=== PATIENT | male | born 1960 | race Caucasian/White ===

== ENCOUNTER 2021-08-12 09:52 | Emergency (ER) | payer OTHER ==
--- NOTE | 2021-08-12 10:35 | ED ---
ENT HPI - General Chief complaint: ENT Stated complaint: boil in nose Time Seen by Provider: 08/12/21 10:07 Source: patient, RN notes reviewed Mode of arrival: ambulatory Limitations: no limitations - History of Present Illness Initial comments: 89-year-old male presents to emergency department with left nostril obstruction possible boil or polyp. He notes he was on the Internet last night significant removed himself. He notes that he's had this issue ongoing for the past several years. He notes he has not followed up with an ENT specialist. Patient was otherwise well-appearing. He denied any fevers chest pain shortness of breath headache nausea vomiting diarrhea constipation fatigue chills. - Related Data Previous Rx's Medication Instructions Recorded Fluticasone Nasal [place] [Flonase 2 spr EA NOSTRIL DAILY #16 gm 08/12/21 Nasal [place]] Allergies Allergy/AdvReac Type Severity Reaction Status Date / Time No Known Allergies Allergy Verified 08/12/21 09:57 Review of Systems ROS Statement: Those systems with pertinent positive or pertinent negative responses have been documented in the HPI. ROS Other: All systems not noted in ROS Statement are negative. Past Medical History Past Medical History: No Reported History History of Any Multi-Drug Resistant Organisms: None Reported Past Surgical History: No Surgical Hx Reported Past Psychological History: No Psychological Hx Reported Smoking Status: Current every day smoker Past Alcohol Use History: None Reported Past Drug Use History: Cocaine, Marijuana General Exam Limitations: no limitations General appearance: alert, in no apparent distress Head exam: Present: atraumatic, normocephalic, normal inspection Eye exam: Present: normal appearance, PERRL, EOMI. Absent: scleral icterus, conjunctival injection, periorbital swelling ENT exam: Present: normal exam, mucous membranes moist, other (Several left- sided nasal polyps causing mild obstruction to the nare.) Neck exam: Present: normal inspection Respiratory exam: Present: normal lung sounds bilaterally. Absent: respiratory distress, wheezes, rales, rhonchi, stridor Cardiovascular Exam: Present: regular rate, normal rhythm, normal heart sounds. Absent: systolic murmur, diastolic murmur, rubs, gallop, clicks GI/Abdominal exam: Present: soft, normal bowel sounds. Absent: distended, tenderness, guarding, rebound, rigid Extremities exam: Present: normal inspection, full ROM, normal capillary refill. Absent: tenderness, pedal edema, joint swelling, calf tenderness Neurological exam: Present: alert, oriented X3 Psychiatric exam: Present: normal affect, normal mood Skin exam: Present: warm, dry, intact, normal color. Absent: rash Course Vital Signs 08/12/21 09:53 Temperature 97.9 F Pulse Rate 97 Respiratory 18 Rate Blood Pressure 169/88 O2 Sat by Pulse 98 Oximetry Medical Decision Making - Medical Decision Making 60-year-old male complaining of left-sided nose obstruction due to possible amber yp or boil. Upon physical inspection left nostril does have several large polyps. Patient was informed that he will need to follow-up with a ENT specialist to have them removed. Patient is agreeable with discharge home with Flonase. Case discussed with Dr. Breaux, patient can discharge home. Disposition Clinical Impression: Nasal polyp Disposition: HOME SELF-CARE Condition: Stable Instructions (If sedation given, give patient instructions): Nasal Polyps (ED) Additional Instructions: Please return to the Emergency Department if symptoms worsen or any other concerns. Follow-up with primary care in 1-2 days. Follow-up with ENT specialist as soon as possible. Use Flonase as prescribed. Prescriptions: Fluticasone Nasal [place] [Flonase Nasal [place]] 2 spr EA NOSTRIL DAILY #16 gm Is patient prescribed a controlled substance at d/c from ED?: No Referrals: Mando King MD [Primary Care Provider] - 1-2 days Mark Silverio MD [STAFF PHYSICIAN] - 1-2 days Time of Disposition: 10:35
[2021-08-12 11:05] VITALS: BP 157/79; PULSE 67; RESP 17; TEMP 98
== END 2021-08-12 11:07 | disposition home or self-care (01) ==
LOC: EC 09:52
DX: J33.9 Nasal polyp, unspecified (principal); F17.200 Nicotine dependence, unspecified, uncomplicated; F12.90 Cannabis use, unspecified, uncomplicated
CPT/HCPCS: 99282

== ENCOUNTER → 2021-10-11 | Outpatient (CLI) | payer OTHER ==
--- NOTE | 2021-10-12 11:37 | CT ---
EXAMINATION TYPE: CT sinus wo con DATE OF EXAM: 10/11/2021 COMPARISON: None HISTORY: Chronic sinusitis, polyps LT side CT DLP: 605.90 mGycm. Automated Exposure Control for Dose Reduction was Utilized. TECHNIQUE: CT scan of the sinuses is performed without contrast, axial images are obtained, coronal r eformatted images are also reviewed. FINDINGS: The left maxillary sinus shows abnormal soft tissue, there is bone remodeling along the med ial aspect of the left maxillary sinus, mixed predominant soft tissue and airspace disease is present , there are some areas of polypoid soft tissue present along the middle turbinate, soft tissue extend s along the middle and inferior turbinates. There is a deviated nasal septum present. Ostiomeatal uni t is not recognizable on the left but patent on the right. There is a posterior molar present at the antrum of the left maxillary sinus, there is likely to indicate present within the more anterior mola r, possible periapical abscess formation present along the roots of the molar. Visualized portion of mastoid air cells show no abnormal opacification. The globes are intact bilate rally. IMPRESSION: Indeterminate soft tissue with bone remodeling could possibly be related to infection, un derlying polyp disease, mucous retention cyst not excluded, additional findings above
== END | disposition home or self-care (01) ==
LOC: RADCTMAIN 15:13
PROVIDERS: ATTEND Otolaryngology
DX: J34.89 Other specified disorders of nose and nasal sinuses (principal); J34.2 Deviated nasal septum
CPT/HCPCS: 70486

== ENCOUNTER → 2023-10-30 | Outpatient (CLI) | payer OTHER ==
--- NOTE | 2023-10-30 09:13 | CTL ---
EXAMINATION TYPE: CT Low Dose Lung DATE OF EXAM ORDERED: 10/30/2023 COMPARISON: None HISTORY: . Low Dose CT Lung Screening CT DLP: [address] CTDI: 2.45 mGy IV CONTRAST USED: None. SCREENING VISIT: First visit COMPARISON: None. TECHNIQUE: Low dose computed tomography scan was performed through the chest at 1 millimeter thick se ctions and reconstructed images in the coronal plane at [address] DIAGNOSTIC QUALITY: Satisfactory FINDINGS: LUNG NODULES: Not presentLeft lung: no nodules identified.Right lung: no nodules identified. LUNGS: COPD: Severity: Mild Fibrosis: Severity:None Lymph nodes: None Other findings: None RIGHT PLEURAL SPACE: Effusion: None Calcification: None Thickening: None Pneumothorax: None LEFT PLEURAL SPACE: Effusion: None Calcification: None Thickening: None Pneumothorax: None HEART: Heart Size: Mildly enlarged Coronary calcification: Mild Pericardial effusion: None OTHER FINDINGS: Upper abdomen: No significant abnormality Bony thorax: Degenerative changes Supraclavicular region: No significant abnormalityOther: No significant abnormalityI IMPRESSION: Benign FOLLOW UP CT CHEST RECOMMENDATION: Follow-up screening in one year CT LUNG RAD: LUNG RAD CATEGORY 1 negative
== END | disposition home or self-care (01) ==
LOC: RADCTMAIN 08:48
PROVIDERS: ATTEND Family Medicine
DX: Z12.2 Encounter for screening for malignant neoplasm of respiratory organs (principal); Z87.891 Personal history of nicotine dependence
CPT/HCPCS: 71271

== ENCOUNTER → 2023-11-05 | Outpatient (CLI) | payer OTHER ==
--- NOTE | 2023-11-05 13:44 | US ---
EXAMINATION TYPE: US Aorta Screening DATE OF EXAM: 11/05/2023 COMPARISON: NONE CLINICAL INDICATION: Male, 62 years old with history of I71.9 AORTIC ANEURYSM OF UNSPECIFIED SITE; sc reening TECHNIQUE: Multiple sonographic images of the abdominal aorta are obtained. FINDINGS: EXAM MEASUREMENTS: Abdominal Aorta: Proximal: 2.0 x 2.0cm Mid: 2.2 x 2.2cm Distal: 2.0 x 2.3cm Bifurcation: Right Iliac: 1.2 x 1.3cm Left Iliac: 1.3 x 1.2cm YARD ENGINEER NOTES: Calcifications noted. No evidence of AAA at this time as visualized IMPRESSION: No sonographic evidence for AAA.
== END | disposition home or self-care (01) ==
LOC: RADUSWWP 08:41
PROVIDERS: ATTEND Family Medicine
DX: Z13.6 Encounter for screening for cardiovascular disorders (principal); I71.9 Aortic aneurysm of unspecified site, without rupture
CPT/HCPCS: 76706

== ENCOUNTER 2023-12-15 13:24 | Emergency (ER) | payer OTHER ==
[2023-12-15 14:05] VITALS: TEMP 97.7
--- NOTE | 2023-12-15 15:01 | CT ---
EXAMINATION TYPE: CT brain wo con CT DLP: 1226.4 mGycm, Automated exposure control for dose reduction was used. DATE OF EXAM: 12/15/2023 2:50 PM COMPARISON: None. CLINICAL INDICATION:Male, 63 years old with history of weakness, States that his head has been shakin g, numbness in fingers x 2 weeks TECHNIQUE: Brain: Axial CT images of the brain were obtained with coronal and sagittal reformats created and rev iewed. Contrast used: None. Oral contrast used: None. FINDINGS: Brain: Extra-axial spaces: No abnormal extra-axial fluid collections. Ventricular system: Within normal limits Cerebral parenchyma: No acute intraparenchymal hemorrhage or mass effect. The lin-white junction is well differentiated. Scattered hypoattenuating areas are seen within the white matter. Cerebellum: Unremarkable. Mass effect: No evidence of midline shift. Intracranial vasculature: Atherosclerotic calcifications of the intracranial vessels. Soft tissues: Normal. Calvarium/osseous structures: No depressed skull fracture. Paranasal sinuses and mastoid air cells: Prior post fess changes involving the left maxillary sinus w ith mild residual disease. Visualized orbits: Orbital contents are intact. IMPRESSION: 1. No acute intracranial process. 2. Nonspecific white matter changes, likely secondary to chronic small vessel ischemic disease.
--- NOTE | 2023-12-15 15:03 | XR ---
EXAMINATION TYPE: XR chest 2V DATE OF EXAM: 12/15/2023 2:57 PM CLINICAL INDICATION:Male, 63 years old with history of Weakness; [facility] COMPARISON: None TECHNIQUE: XR chest 2V Frontal and lateral views of the chest. FINDINGS: Lungs/Pleura: Lungs are mildly hyperexpanded. No evidence of pleural effusion or pneumothorax Pulmonary vascularity: Unremarkable. Heart/mediastinum: Cardiomediastinal silhouette is unremarkable. Musculoskeletal: No acute osseous pathology. IMPRESSION: 1. No evidence of acute process. 2. Mild hyperexpansion of the lungs which can be seen with underlying emphysema.
--- NOTE | 2023-12-15 15:04 | ED ---
General Adult HPI - General Chief complaint: Neuro Symptoms/Deficit Stated complaint: numb finger Time Seen by Provider: 12/15/23 13:50 Source: patient, RN notes reviewed, old records reviewed Mode of arrival: ambulatory Limitations: no limitations - History of Present Illness Initial comments: 63-year-old male history of anxiety presents for evaluation of head tremor and bilateral hand and foot numbness. Symptoms have been progressive over the past several days but his sister does note that they may have been present longer up to a month or so. He is currently on Ativan and Paxil. No fever no central chest pain. No focal weakness. No headache. - Related Data Previous Rx's Medication Instructions Recorded Fluticasone Nasal [place] [Flonase 2 spr EA NOSTRIL DAILY #16 gm 08/12/21 Nasal [place]] Allergies Allergy/AdvReac Type Severity Reaction Status Date / Time No Known Allergies Allergy Verified 08/12/21 09:57 Review of Systems ROS Statement: Those systems with pertinent positive or pertinent negative responses have been documented in the HPI. ROS Other: All systems not noted in ROS Statement are negative. Past Medical History Past Medical History: No Reported History, Hypertension History of Any Multi-Drug Resistant Organisms: None Reported Past Surgical History: No Surgical Hx Reported Past Psychological History: Anxiety, Depression Smoking Status: Current every day smoker Past Alcohol Use History: None Reported Past Drug Use History: Cocaine, Marijuana General Exam Limitations: no limitations General appearance: alert, in no apparent distress Head exam: Present: atraumatic, normocephalic Eye exam: Present: normal appearance, PERRL ENT exam: Present: mucous membranes dry Neck exam: Present: normal inspection. Absent: tenderness, meningismus Respiratory exam: Present: normal lung sounds bilaterally. Absent: respiratory distress Cardiovascular Exam: Present: regular rate, normal rhythm GI/Abdominal exam: Present: soft. Absent: distended, tenderness Neurological exam: Present: alert Psychiatric exam: Present: anxious Skin exam: Present: warm, dry, intact Course Vital Signs 12/15/23 13:30 Temperature 97.7 F Pulse Rate 77 Respiratory 20 Rate Blood Pressure 153/92 O2 Sat by Pulse 98 Oximetry Medical Decision Making - Medical Decision Making Was pt. sent in by a medical professional or institution (, PA, SHIPPING TRACK SUPERVISOR, urgent care, hospital, or fpc...) When possible be specific @ -No Did you speak to anyone other than the patient for history (EMS, parent, family, police, friend...)? What history was obtained from this source @ -No Did you review nursing and triage notes (agree or disagree)? Why? @ -I reviewed and agree with nursing and triage notes Were old charts reviewed (outside hosp., previous admission, EMS record, old EKG, old radiological studies, urgent care reports/EKG's, fpc records)? Report findings @ -No old charts were reviewed Differential Diagnosis (chest pain, altered mental status, abdominal pain women, abdominal pain men, vaginal bleeding, weakness, fever, dyspnea, syncope, headache, dizziness, GI bleed, back pain, seizure, CVA, palpatations, mental health, musculoskeletal)? @ -Differential Weakness: Hypoglycemia, shock, sepsis, hyponatremia, anemia, infection, LA, ETOH, adverse medicine reaction, overdose, stroke, this is not meant to be an all-inclusive list. EKG interpreted by me (3pts min.). @ -As above X-rays interpreted by me (1pt min.). @Chest x-ray negative for acute cardiopulmonary findings CT interpreted by me (1pt min.). @ -CT brain negative for intracranial hemorrhage or mass effect, no acute findings. U/S interpreted by me (1pt. min.). @ -None done What testing was considered but not performed or refused? (CT, X-rays, U/S, labs)? Why? @ -None What meds were considered but not given or refused? Why? @ -None Did you discuss the management of the patient with other professionals (professionals i.e. , PA, SHIPPING TRACK SUPERVISOR, lab, RT, psych nurse, pediatric social worker, environmental professional, teacher, compliance officer, pillowcase cutter)? Give summary @ -No Was smoking cessation discussed for >3mins.? @ -No Was critical care preformed (if so, how long)? @ -No Were there social determinants of health that impacted care today? How? (Homelessness, low income, unemployed, alcoholism, drug addiction, transportation, low edu. Level, literacy, decrease access to med. care, residential, rehab)? @ -No Was there de-escalation of care discussed even if they declined (Discuss DNR or withdrawal of care, Hospice)? DNR status @ -No What co-morbidities impacted this encounter? (DM, HTN, Smoking, COPD, CAD, Cancer, CVA, ARF, Chemo, Hep., AIDS, mental health diagnosis, sleep apnea, morbid obesity)? @ -Anxiety Was patient admitted / discharged? Hospital course, mention meds given and route, prescriptions, significant lab abnormalities, going to OR and other pertinent info. @63-year-old male presenting with tremor, bilateral hand and foot numbness and tingling. Patient is well-appearing stable vitals, no focal neurological findings. I did perform workup including laboratory testing, CT, chest x-ray. Labs are unremarkable. Head CT and chest x-ray are negative for acute findings. The patient does have good primary care follow-up and will follow closely with his primary care provider. He will continue Paxil and Ativan as prescribed. Return parameters discussed. Undiagnosed new problem with uncertain prognosis? @ -No Drug Therapy requiring intensive monitoring for toxicity (Heparin, Nitro, Insulin, Cardizem)? @ -No Were any procedures done? @ -No Diagnosis/symptom? @ -[Tremor Acute, or Chronic, or Acute on Chronic? @ -Acute Uncomplicated (without systemic symptoms) or Complicated (systemic symptoms)? @ -[default Side effects of treatment? @ -No Exacerbation, Progression, or Severe Exacerbation? @ -No Poses a threat to life or bodily function? How? (Chest pain, USA, LA, pneumonia, PE, COPD, DKA, ARF, appy, cholecystitis, CVA, Diverticulitis, Homicidal, Suicidal, threat to staff... and all critical care pts) @ -[Low risk at this time - Lab Data Result diagrams: 12/15/23 14:39 12/15/23 14:39 Lab Results 12/15/23 12/15/23 12/15/23 Range/Units 14:39 14:39 14:39 WBC 10.3 (3.8-10.6) k/uL RBC 5.14 (4.30-5.90) m/uL Hgb 16.7 (13.0-17.5) gm/dL Hct 51.2 (39.0-53.0) % MCV 99.6 (80.0-100.0) fL MCH 32.5 (25.0-35.0) pg MCHC 32.7 (31.0-37.0) g/dL RDW 11.5 (11.5-15.5) % Plt Count 145 L (150-450) k/uL MPV 10.4 PT 11.0 (10.0-12.5) sec INR 1.0 (<1.2) APTT 23.8 (22.0-30.0) sec Sodium 140 (137-145) mmol/L Potassium 4.1 (3.5-5.1) mmol/L Chloride 107 (98-107) mmol/L Carbon Dioxide 23 (22-30) mmol/L Anion Gap 10 mmol/L BUN 13 (9-20) mg/dL Creatinine 0.91 (0.66-1.25) mg/dL Est GFR (CKD-EPI)AfAm >90 (>60 ml/min/1.73 sqM) Est GFR (CKD-EPI)NonAf >90 (>60 ml/min/1.73 sqM) Glucose 98 (74-99) mg/dL Plasma Lactic Acid Tera (0.7-2.0) mmol/L Calcium 9.4 (8.4-10.2) mg/dL Magnesium 2.0 (1.6-2.3) mg/dL Total Bilirubin 1.6 H (0.2-1.3) mg/dL AST 20 (17-59) U/L ALT 18 (4-49) U/L Alkaline Phosphatase 85 (38-126) U/L Troponin I (0.000-0.034) ng/mL Total Protein 7.3 (6.3-8.2) g/dL Albumin 4.5 (3.5-5.0) g/dL 12/15/23 12/15/23 Range/Units 14:39 14:39 WBC (3.8-10.6) k/uL RBC (4.30-5.90) m/uL Hgb (13.0-17.5) gm/dL Hct (39.0-53.0) % MCV (80.0-100.0) fL MCH (25.0-35.0) pg MCHC (31.0-37.0) g/dL RDW (11.5-15.5) % Plt Count (150-450) k/uL MPV PT (10.0-12.5) sec INR (<1.2) APTT (22.0-30.0) sec Sodium (137-145) mmol/L Potassium (3.5-5.1) mmol/L Chloride (98-107) mmol/L Carbon Dioxide (22-30) mmol/L Anion Gap mmol/L BUN (9-20) mg/dL Creatinine (0.66-1.25) mg/dL Est GFR (CKD-EPI)AfAm (>60 ml/min/1.73 sqM) Est GFR (CKD-EPI)NonAf (>60 ml/min/1.73 sqM) Glucose (74-99) mg/dL Plasma Lactic Acid Tera 1.6 (0.7-2.0) mmol/L Calcium (8.4-10.2) mg/dL Magnesium (1.6-2.3) mg/dL Total Bilirubin (0.2-1.3) mg/dL AST (17-59) U/L ALT (4-49) U/L Alkaline Phosphatase (38-126) U/L Troponin I <0.012 (0.000-0.034) ng/mL Total Protein (6.3-8.2) g/dL Albumin (3.5-5.0) g/dL Disposition Clinical Impression: Tremor, Paresthesia Disposition: HOME SELF-CARE Condition: Fair Instructions (If sedation given, give patient instructions): Paresthesia (ED), Tremors (ED) Is patient prescribed a controlled substance at d/c from ED?: No Referrals: Mando King MD [Primary Care Provider] - 1-2 days Time of Disposition: 16:22
[2023-12-15] MEDS: LORazepam 2 MG/ML INJ IV STA (15:11)
[2023-12-15] MEDS: SODIUM CHLORIDE 0.9% 500 ML 500 ML IV ONE (15:12)
[2023-12-15 15:29] LABS: HCT 51.2 % (39.0-53.0); HGB 16.7 gm/dL (13.0-17.5); MCH 32.5 pg (25.0-35.0); MCHC 32.7 g/dL (31.0-37.0); MCV 99.6 fL (80.0-100.0); Mean Platelet Volume 10.4; Partial Thromboplastin Time 23.8 sec (22.0-30.0); Platelet Count 145 k/uL (150-450); RBC 5.14 m/uL (4.30-5.90); RDW 11.5 % (11.5-15.5); WBC 10.3 k/uL (3.8-10.6)
[2023-12-15 15:38] LABS: ALT 18 U/L (4-49); AST 20 U/L (17-59); African American GFR (CKD) >90 (>60 ml/min/1.73 sqM); Albumin 4.5 g/dL (3.5-5.0); Alkaline Phosphatase 85 U/L (38-126); Anion Gap 10 mmol/L; Blood Urea Nitrogen 13 mg/dL (9-20); Calcium 9.4 mg/dL (8.4-10.2); Carbon Dioxide 23 mmol/L (22-30); Chloride 107 mmol/L (98-107); Glucose 98 mg/dL (74-99); Non-African American GFR(CKD) >90 (>60 ml/min/1.73 sqM); Potassium 4.1 mmol/L (3.5-5.1); Sodium 140 mmol/L (137-145); Total Bilirubin 1.6 mg/dL (0.2-1.3); Total Protein 7.3 g/dL (6.3-8.2)
[2023-12-15 17:37] LABS: Lymphocytes # (M) 1.65 k/uL (1.0-4.8); Monocytes # (M) 0.31 k/uL (0-1.0); Neutrophils # (M) 8.34 k/uL (1.3-7.7); Neutrophils % (M) 81 %; Nucleated Red Blood Cells 0 /100 WBC (0-0); Total Cells Counted 100
[2023-12-15 17:38] LABS: RBC Morphology Normal
[2023-12-15 18:07] VITALS: BP 137/85; PULSE 82; RESP 18
== END 2023-12-15 17:35 | disposition home or self-care (01) ==
LOC: EC 13:24
DX: R25.1 Tremor, unspecified (principal); R20.2 Paresthesia of skin; F17.200 Nicotine dependence, unspecified, uncomplicated; F12.90 Cannabis use, unspecified, uncomplicated; F14.90 Cocaine use, unspecified, uncomplicated
CPT/HCPCS: 36415; 80053; 83605; 83735; 84484; 85025; 85610; 85730; 71046; 70450; 99284; 96374; J2060

== ENCOUNTER 2024-03-08 12:41 | Observation (INO) | payer OTHER ==
--- NOTE | 2024-03-08 12:51 | ED ---
General Adult HPI - General Chief complaint: Overdose Stated complaint: Poss Overdose Time Seen by Provider: 03/08/24 12:45 Source: patient, EMS, RN notes reviewed, old records reviewed Mode of arrival: EMS - History of Present Illness Initial comments: This is a 63-year-old male who presents emergency department for altered mental status. Most of the history comes from EMS and his mother. Patient stated to EMS that at some point that he took a bunch of his Xanax he stated to me that he that he took a bunch of Xanax because he want to kill himself. Mother states she does not believe this. Patient did not have a bottle of empty Xanax near him but that is what he stated he took. Patient did say he may have taken 30 Xanax. According to the mother he she does not even think he had [address]. There is been no history of any trauma. According to the mother the patient was acting completely normal and had no complaints prior to finding him significantly altered today - Related Data Previous Rx's Medication Instructions Recorded Fluticasone Nasal Cost [Flonase 2 spr EA NOSTRIL DAILY #16 gm 08/12/21 Nasal Cost] Allergies Allergy/AdvReac Type Severity Reaction Status Date / Time No Known Allergies Allergy Verified 03/08/24 12:49 Review of Systems ROS Statement: Those systems with pertinent positive or pertinent negative responses have been documented in the HPI. ROS Other: All systems not noted in ROS Statement are negative. Past Medical History Past Medical History: No Reported History, Hypertension History of Any Multi-Drug Resistant Organisms: None Reported Past Surgical History: No Surgical Hx Reported Past Psychological History: Anxiety, Depression Smoking Status: Current every day smoker Past Alcohol Use History: None Reported Past Drug Use History: Cocaine, Marijuana General Exam - General Exam Comments Initial Comments: GENERAL: Patient is well-developed and well-nourished. Patient is nontoxic and well- hydrated and is in no acute distress. Patient will respond to either loud voice or painful stimuli ENT: Neck is soft and supple. No significant lymphadenopathy is noted. Oropharynx is clear. Moist mucous membranes. Neck has full range of motion without eliciting any pain. EYES: The sclera were anicteric and conjunctiva were pink and moist. Extraocular movements were intact and pupils were equal round and reactive to light. Eyelids were unremarkable. PULMONARY: Unlabored respirations. Good breath sounds bilaterally. No audible rales rhonchi or wheezing was noted. CARDIOVASCULAR: There is a regular rate and rhythm without any murmurs gallops or rubs. ABDOMEN: Soft and nontender with normal bowel sounds. SKIN: Skin is clear with no lesions or rashes and otherwise unremarkable. NEUROLOGIC: Patient is alert and oriented x 1. Cranial nerves II through XII are grossly intact. Motor and sensory are also intact. Normal speech, volume and content. Symmetrical smile. MUSCULOSKELETAL: Normal extremities with adequate strength and full range of motion. No lower extremity swelling or edema. No calf tenderness. LYMPHATICS: No significant lymphadenopathy is noted PSYCHIATRIC: Patient did say with suicide Course Vital Signs 03/08/24 03/08/24 03/08/24 12:44 13:07 13:41 Temperature 97.2 F L Pulse Rate 54 L 52 L Respiratory 18 14 18 Rate Blood Pressure 155/131 155/83 O2 Sat by Pulse 90 L 99 Oximetry 03/08/24 03/08/24 14:27 15:48 Temperature Pulse Rate 51 L 51 L Respiratory 20 18 Rate Blood Pressure 152/81 140/78 O2 Sat by Pulse 100 98 Oximetry Medical Decision Making - Medical Decision Making EKG is interpreted by myself. EKG shows sinus bradycardia 48 bpm parables 108 QRS is 86 QT is 410 QTc is 377. Patient's no ST segment elevation or depression. Was pt. sent in by a medical professional or institution (KEMAL Lemon, RAILWAY SIGNALLING ENGINEER, urgent care, hospital, or [place] [facility] [place] facility...) When possible be specific @ -No Did you speak to anyone other than the patient for history (EMS, parent, family, police, friend...)? What history was obtained from this source @ -Patient's mother gives most of the history because the patient is sig nificantly altered and obtunded Did you review nursing and triage notes (agree or disagree)? Why? @ -I reviewed and agree with nursing and triage notes Were old charts reviewed (outside hosp., previous admission, EMS record, old EKG, old radiological studies, urgent care reports/EKG's, [place] [facility] records)? Report findings @ -No old charts were reviewed Differential Diagnosis (chest pain, altered mental status, abdominal pain women, abdominal pain men, vaginal bleeding, weakness, fever, dyspnea, syncope, headache, dizziness, GI bleed, back pain, seizure, CVA, palpatations, mental health, musculoskeletal)? @ -Differential Altered Mental Status: Hypoglycemia, DKA, hypercapnia, ETOH, overdose, CO poisoning, trauma, myxedema coma, HTN encephalopathy, infection, encephalitis, psychosis, intercranial hemorrhage, hepatic encephalopathy, meningitis, CVA, this is not meant to be an all-inclusive list EKG interpreted by me (3pts min.). @ -As above X-rays interpreted by me (1pt min.). @ -None done CT interpreted by me (1pt min.). @ -CT of the brain shows some air in the right frontal region which is not likely to bleed but there is an area of hyperdensity. U/S interpreted by me (1pt. min.). @ -None done What testing was considered but not performed or refused? (CT, X-rays, U/S, labs)? Why? @ -None What meds were considered but not given or refused? Why? @ -None Did you discuss the management of the patient with other professionals (professionals i.e. , PA, RAILWAY SIGNALLING ENGINEER, lab, RT, psych nurse, older adult social work specialist, regional director of finance, teacher, armoured corps officer, director of casework)? Give summary @ -I spoke with Dr. King and he agreed to admit the patient Dr. King saw the patient in the emergency department Was smoking cessation discussed for >3mins.? @ -No Was critical care preformed (if so, how long)? @ -35 minutes Were there social determinants of health that impacted care today? How? (Homelessness, low income, unemployed, alcoholism, drug addiction, transportation, low edu. Level, literacy, decrease access to med. care, senior living, rehab)? @ -No Was there de-escalation of care discussed even if they declined (Discuss DNR or withdrawal of care, Hospice)? DNR status @ -No What co-morbidities impacted this encounter? (DM, HTN, Smoking, COPD, CAD, Cancer, CVA, ARF, Chemo, Hep., AIDS, mental health diagnosis, sleep apnea, morbid obesity)? @ -None Was patient admitted / discharged? Hospital course, mention meds given and route, prescriptions, significant lab abnormalities, going to OR and other pertinent info. @ -Patient remained obtunded only positive on his drug screen was Xanax which she did admit to taking. Family did tell Dr. King that he was depressed because his girlfriend just broke up with him 3 weeks ago Undiagnosed new problem with uncertain prognosis? @ -No Drug Therapy requiring intensive monitoring for toxicity (Heparin, Nitro, Insulin, Cardizem)? @ -No Were any procedures done? @ -No Diagnosis/symptom? @ -Suicide attempt Acute, or Chronic, or Acute on Chronic? @ -Acute Uncomplicated (without systemic symptoms) or Complicated (systemic symptoms)? @ -Complicated Side effects of treatment? @ -No Exacerbation, Progression, or Severe Exacerbation? @ -No Poses a threat to life or bodily function? How? (Chest pain, USA, CO, pneumonia, PE, COPD, DKA, ARF, appy, cholecystitis, CVA, Diverticulitis, Homicidal, Suicidal, threat to staff... and all critical care pts) @ -Yes this could lead to more significant overdose and Diagnosis/symptom? @ -Xanax overdose Acute, or Chronic, or Acute on Chronic? @ -Acute Uncomplicated (without systemic symptoms) or Complicated (systemic symptoms)? @ -Complicated Side effects of treatment? @ -No Exacerbation, Progression, or Severe Exacerbation] @ -No Poses a threat to life or bodily function? @ -Yes this could lead to respiratory depression and - Lab Data Result diagrams: 03/08/24 13:10 03/08/24 13:10 Lab Results 03/08/24 03/08/24 03/08/24 Range/Units 13:10 13:10 13:10 WBC 13.0 H (3.8-10.6) k/uL RBC 4.93 (4.30-5.90) m/uL Hgb 16.3 (13.0-17.5) gm/dL Hct 50.5 (39.0-53.0) % MCV 102.3 H (80.0-100.0) fL MCH 33.0 (25.0-35.0) pg MCHC 32.2 (31.0-37.0) g/dL RDW 11.7 (11.5-15.5) % Plt Count 122 L (150-450) k/uL MPV 10.0 Neutrophils % 86 % Lymphocytes % 7 % Monocytes % 5 % Eosinophils % 1 % Basophils % 0 % Neutrophils # 11.2 H (1.3-7.7) k/uL Lymphocytes # 0.9 L (1.0-4.8) k/uL Monocytes # 0.7 (0-1.0) k/uL Eosinophils # 0.1 (0-0.7) k/uL Basophils # 0.0 (0-0.2) k/uL Sodium 142 (137-145) mmol/L Potassium 4.7 (3.5-5.1) mmol/L Chloride 107 (98-107) mmol/L Carbon Dioxide 30 (22-30) mmol/L Anion Gap 5 mmol/L BUN 10 (9-20) mg/dL Creatinine 0.84 (0.66-1.25) mg/dL Est GFR (CKD-EPI)AfAm >90 (>60 ml/min/1.73 sqM) Est GFR (CKD-EPI)NonAf >90 (>60 ml/min/1.73 sqM) Glucose 97 (74-99) mg/dL Plasma Lactic Acid Tera (0.7-2.0) mmol/L Calcium 9.0 (8.4-10.2) mg/dL Total Bilirubin 1.2 (0.2-1.3) mg/dL AST 22 (17-59) U/L ALT 27 (4-49) U/L Alkaline Phosphatase 99 (38-126) U/L Troponin I (0.000-0.034) ng/mL Total Protein 7.1 (6.3-8.2) g/dL Albumin 4.3 (3.5-5.0) g/dL Salicylates <1.0 mg/dL Urine Opiates Screen Not Detected (NotDetected) Ur Oxycodone Screen Not Detected (NotDetected) Urine Methadone Screen Not Detected (NotDetected) Acetaminophen <10.0 ug/mL Ur Barbiturates Screen Not Detected (NotDetected) U Tricyclic Antidepress Not Detected (NotDetected) Ur Phencyclidine Scrn Not Detected (NotDetected) Ur Amphetamines Screen Not Detected (NotDetected) U Methamphetamines Scrn Not Detected (NotDetected) U Benzodiazepines Scrn Detected H (NotDetected) Urine Cocaine Screen Not Detected (NotDetected) U Marijuana (THC) Screen Not Detected (NotDetected) Serum Alcohol <10 mg/dL 03/08/24 03/08/24 Range/Units 13:10 13:10 WBC (3.8-10.6) k/uL RBC (4.30-5.90) m/uL Hgb (13.0-17.5) gm/dL Hct (39.0-53.0) % MCV (80.0-100.0) fL MCH (25.0-35.0) pg MCHC (31.0-37.0) g/dL RDW (11.5-15.5) % Plt Count (150-450) k/uL MPV Neutrophils % % Lymphocytes % % Monocytes % % Eosinophils % % Basophils % % Neutrophils # (1.3-7.7) k/uL Lymphocytes # (1.0-4.8) k/uL Monocytes # (0-1.0) k/uL Eosinophils # (0-0.7) k/uL Basophils # (0-0.2) k/uL Sodium (137-145) mmol/L Potassium (3.5-5.1) mmol/L Chloride (98-107) mmol/L Carbon Dioxide (22-30) mmol/L Anion Gap mmol/L BUN (9-20) mg/dL Creatinine (0.66-1.25) mg/dL Est GFR (CKD-EPI)AfAm (>60 ml/min/1.73 sqM) Est GFR (CKD-EPI)NonAf (>60 ml/min/1.73 sqM) Glucose (74-99) mg/dL Plasma Lactic Acid Tera 1.3 (0.7-2.0) mmol/L Calcium (8.4-10.2) mg/dL Total Bilirubin (0.2-1.3) mg/dL AST (17-59) U/L ALT (4-49) U/L Alkaline Phosphatase (38-126) U/L Troponin I <0.012 (0.000-0.034) ng/mL Total Protein (6.3-8.2) g/dL Albumin (3.5-5.0) g/dL Salicylates mg/dL Urine Opiates Screen (NotDetected) Ur Oxycodone Screen (NotDetected) Urine Methadone Screen (NotDetected) Acetaminophen ug/mL Ur Barbiturates Screen (NotDetected) U Tricyclic Antidepress (NotDetected) Ur Phencyclidine Scrn (NotDetected) Ur Amphetamines Screen (NotDetected) U Methamphetamines Scrn (NotDetected) U Benzodiazepines Scrn (NotDetected) Urine Cocaine Screen (NotDetected) U Marijuana (THC) Screen (NotDetected) Serum Alcohol mg/dL Disposition Clinical Impression: Drug overdose, Suicide attempt Disposition: ADMITTED IP TO THIS HOSP Referrals: Mando King MD [Primary Care Provider] - 1-2 days Time of Disposition: 15:54
[2024-03-08] MEDS: NALOXONE 0.4 MG/ML 1 ML VIAL IV STA (13:07)
[2024-03-08] MEDS: SODIUM CHLORIDE 0.9% 1,000 ML IV STA (13:08)
[2024-03-08 13:19] LABS: Basophils % (A) 0 %; Eosinophils # (A) 0.1 k/uL (0-0.7); Eosinophils % (A) 1 %; HCT 50.5 % (39.0-53.0); HGB 16.3 gm/dL (13.0-17.5); Lymphocytes # (A) 0.9 k/uL (1.0-4.8); Lymphocytes % (A) 7 %; MCHC 32.2 g/dL (31.0-37.0); MCV 102.3 fL (80.0-100.0); Monocytes # (A) 0.7 k/uL (0-1.0); Monocytes % (A) 5 %; Neutrophils # (A) 11.2 k/uL (1.3-7.7); Neutrophils % (A) 86 %; Platelet Count 122 k/uL (150-450); RBC 4.93 m/uL (4.30-5.90); RDW 11.7 % (11.5-15.5)
[2024-03-08 13:29] LABS: Amphetamine Screen,Urine Not Detected (NotDetected); Barbiturate Screen,Urine Not Detected (NotDetected); Benzodiazepines Screen,Urine Detected (NotDetected); Cocaine Screen,Urine Not Detected (NotDetected); Methadone Screen, Urine Not Detected (NotDetected); Opiate Screen,Urine Not Detected (NotDetected); Oxycodone Screen, Urine Not Detected (NotDetected); Phencyclidine Screen,Urine Not Detected (NotDetected); Tricyclic Antidepressant,Urine Not Detected (NotDetected); Urn Cannabinoid Scrn Not Detected (NotDetected)
[2024-03-08 13:35] LABS: ALT 27 U/L (4-49); AST 22 U/L (17-59); Acetaminophen <10.0 ug/mL; African American GFR (CKD) >90 (>60 ml/min/1.73 sqM); Albumin 4.3 g/dL (3.5-5.0); Alcohol <10 mg/dL; Alkaline Phosphatase 99 U/L (38-126); Anion Gap 5 mmol/L; Blood Urea Nitrogen 10 mg/dL (9-20); Carbon Dioxide 30 mmol/L (22-30); Chloride 107 mmol/L (98-107); Glucose 97 mg/dL (74-99); Non-African American GFR(CKD) >90 (>60 ml/min/1.73 sqM); Potassium 4.7 mmol/L (3.5-5.1); Salicylate <1.0 mg/dL; Sodium 142 mmol/L (137-145); Total Bilirubin 1.2 mg/dL (0.2-1.3); Total Protein 7.1 g/dL (6.3-8.2)
--- NOTE | 2024-03-08 14:47 | CT ---
EXAMINATION TYPE: CT brain wo con CT DLP: 1256.4 mGycm, Automated exposure control for dose reduction was used. DATE OF EXAM: 03/08/2024 2:11 PM COMPARISON: 12/15/2023. CLINICAL INDICATION:Male, 63 years old with history of Altered mental status, AMS possible overdose TECHNIQUE: Brain: Axial CT images of the brain were obtained with coronal and sagittal reformats created and rev iewed. Contrast used: None. Oral contrast used: None. FINDINGS: Brain: Extra-axial spaces: No abnormal extra-axial fluid collections. Ventricular system: Within normal limits Cerebral parenchyma: Higher density somewhat ill-defined area within the right frontal lobe series 20 32 image 18 not seen on prior. No acute mass effect. The lin-white junction is well differentiated. Cerebellum: Unremarkable. Mass effect: No evidence of midline shift. Intracranial vasculature: Atherosclerotic calcifications of the intracranial vessels. Soft tissues: Normal. Calvarium/osseous structures: No depressed skull fracture. Paranasal sinuses and mastoid air cells: Mild scattered paranasal sinus disease. Visualized orbits: Orbital contents are intact. IMPRESSION: 1. No evidence for acute/subacute CVA 2. Intra-axial area of hyperdensity brain parenchyma in the right frontal lobe not present on prior CT. Not felt to represent blood products. Further evaluation with MRI recommended with IV contrast.
[2024-03-08] MEDS: SODIUM CHLORIDE 0.9% 1,000 ML IV ONE (17:07)
--- NOTE | 2024-03-09 06:55 | HP ---
HISTORY AND PHYSICAL CHIEF COMPLAINT: Lethargy and mental status. HISTORY OF PRESENT ILLNESS: This is the first known admission for this gentleman, who presented to the emergency room after his family found him very lethargic and not arousable. He has been a longstanding patient and does have a lot of trouble with anxiety and depression. He is a heavy smoker. He has also had history of hypertension. History is largely obtained from his mother whom he lives with and who found him being very lethargic. In the emergency room, his workup was essentially negative. There may have been some minor abnormalities in the CT scan of the brain, but nothing to account for his somnolence. He does have tranquilizers at home. When he was first in the emergency room and his mother asked him what happened, he apparently he was depressed and was trying to "end it all." Apparently, his girlfriend left him about 3 weeks ago. REVIEW OF SYSTEMS: Not obtainable. Past medical history, family history, and personal and social histories are otherwise unremarkable. PHYSICAL EXAMINATION: VITAL SIGNS: Blood pressure is 102/64 with a pulse of 67, respirations of 10. GENERAL: He appeared to be slightly overweight and very somnolent. He was arousable but was not answering appropriately. HEAD, EARS, EYES, NOSE, MOUTH, AND THROAT: Normal. There is no facial droop. Pupils equally round, reactive. CHEST: Clear. CARDIAC: Normal sinus rhythm. ABDOMEN: Protuberant, soft, and nontender. EXTREMITIES: Normal. NEUROLOGICAL: Other than being lethargic, he seemed to be intact. Babinski downgoing. ASSESSMENT: Admitted to the hospital with diagnosis, 1. Mental status changes. 2. Probable benzodiazepine overdose. 3. Depression. 4. Possible suicide attempt. 5. Rule out cerebrovascular issues. 6. Chronic obstructive pulmonary disease. PLAN: 1. Bed rest. 2. IV fluids. 3. Frequent monitoring of his neurologic status and vital signs. 4. Consult Neurology. 5. Consult Psychiatry. MMODL / IJN: [id number] /
[2024-03-09] MEDS: IPRATROPIUM-ALBUTEROL 3 ML NEB INHALATION SCH (11:15)
--- NOTE | 2024-03-09 15:31 | P.CNNES ---
History of Present Illness Consult date: 03/09/24 Requesting physician: Phan Ramírez Reason for Consult: frontal lobe hyperdensity History of Present Illness: There is a 63-year-old gentleman presents because of benzodiazepine overdose intentional suicidal. Patient states he took Xanax 1 mg and he took 60 tablets of him and he wanted to commit suicide since he had enough dealing with his girlfriend and mother who he feels they are bipolar. He denies any headache, any nausea any vomiting. Denies any focal weakness. Denies any head trauma. Denies any history of stroke or seizures. Denies any focal weakness. Is any prior suicidal attempts in the past. Some of the workup during this hospital visit consisted of: Chemistry panel is unremarkable Urine Toxicology screen is positive for benzo. Otherwise the rest is on nondetected. Serum alcohol is less than 10 CT of the head is reported as no evidence for acute/subacute CVA. Intra-axial area of hyperdensity brain parenchyma in the right frontal lobe not present on prior imaging. Not felt to represent blood product. Further evaluation with MRI recommended with IV contrast. Reviewed the CT and I did see what the radiologist pointed out unsure if it is truly hyper intensity due to questionable mass versus bleed versus artifact. Review of Systems The positive and negative as per HPI. Past Medical History Past Medical History: No Reported History, Hypertension History of Any Multi-Drug Resistant Organisms: None Reported Past Surgical History: No Surgical Hx Reported Past Psychological History: Anxiety, Depression Smoking Status: Current every day smoker Past Alcohol Use History: None Reported Past Drug Use History: Cocaine, Marijuana Medications and Allergies Home Medications Medication Instructions Recorded Confirmed Type ALPRAZolam [Xanax] 1 mg PO TID PRN 03/08/24 03/08/24 History Atorvastatin [Lipitor] 40 mg PO DAILY 03/08/24 03/08/24 History Ergocalciferol (Vitamin D2) 1,250 mcg PO Q30D 03/08/24 03/08/24 History [Drisdol (50,000 Iu)] Losartan Potassium 100 mg PO DAILY 03/08/24 03/08/24 History PARoxetine HCL [Paxil] 20 mg PO DAILY 03/08/24 03/08/24 History Sodium Chloride [Baby [place] Saline] 1 spray MUCOUS MEM BID 03/08/24 03/08/24 History hydrALAZINE HCL [Apresoline] 25 mg PO BID 03/08/24 03/08/24 History Allergies Allergy/AdvReac Type Severity Reaction Status Date / Time No Known Allergies Allergy Verified 03/08/24 17:10 Physical Examination - Vital Signs Vital Signs: Vital Signs Temp Pulse Pulse Resp BP BP Pulse Ox 03/09/24 15:12 64 03/09/24 14:00 97.4 F L 74 17 115/74 98 03/09/24 11:28 60 03/09/24 11:16 60 03/09/24 07:48 97.5 F L 53 L 17 144/74 98 03/09/24 00:12 99.0 F 53 L 19 144/80 98 03/09/24 00:03 98.3 F 77 18 139/77 96 03/08/24 23:00 58 L 17 143/76 95 03/08/24 22:00 62 24 141/79 95 03/08/24 21:00 56 L 16 140/77 97 03/08/24 20:12 61 16 145/85 99 03/08/24 17:30 49 L 18 141/87 100 03/08/24 17:08 48 L 18 112/59 100 03/08/24 15:48 51 L 18 140/78 98 Intake and Output 03/09/24 03/09/24 03/09/24 06:59 14:59 22:59 Output Total 575 Balance -575 Output: Urine 575 Other: Voiding Method Incontinent External Catheter GENERAL: The patient is lying in bed and is not in acute distress. Psych: Flat affect. NEUROLOGICAL: Somewhat limited because of cooperation. Higher mental function: The patient is drowsy but is awakeable to voice. Is oriented to self, place and time. Patient is following commands. No aphasia and no neglect. Cranial nerves: The pupils are round, equal and reactive to light and accommodation. Visual el are full to confrontation throughout. Extraocular movement is intact no nystagmus is noted. Facial sensation is normal to touch throughout. The facial strength is normal throughout. Tongue is midline and moved [id number] without any difficulty. No dysarthria is noted. Shoulder shrug is normal bilaterally. Motor: The strength is hard to assess individual muscle strength because of cooperation. Is lifting bilateral uppers above gravity symmetrically. While the lowers is wiggling toes. Normal tone and bulk. Cerebellum: Normal finger to nose bilaterally. Sensation: Sensation is normal to touch throughout. Reflexes (right/left):1+ but limited because of cooperation. Plantars are downgoing bilaterally. Results - Laboratory Findings CBC and BMP: 03/08/24 13:10 03/08/24 13:10 Abnormal Lab Findings: Abnormal Labs 03/08/24 03/08/24 13:10 13:10 WBC 13.0 H MCV 102.3 H Plt Count 122 L Neutrophils # 11.2 H Lymphocytes # 0.9 L U Benzodiazepines Scrn Detected H Assessment and Plan Assessment: This is a 63-year-old gentleman who presented emergency department because of suicidal attempt in which he overdosed on Xanax and he stated that he took 60 tablets of 1 mg of Xanax. His stressors was dealing with mother and his girlfriend we feels they have bipolar. CT of the head shows hyperintensity over the right frontal which was not seen on the prior. Denies of any headache, focal weakness or any head trauma Suicidal attempt Hyperintensity over the right frontal and unsure if it artifact versus mass versus a bleed. Plan: I ordered MRI of the brain with and without Psychiatry is consulted Will defer the rest of the medical management to primary and other specialist Discussed with the patient and his nurse. Thank you for the consultation. Time with Patient: Greater than 30
--- NOTE | 2024-03-10 00:07 | PN ---
PROGRESS NOTE CHIEF COMPLAINT: Overdose and lethargy. HISTORY OF PRESENT ILLNESS: This gentleman is still quite lethargic. He is arousable and when asked if he was trying to kill himself with this Xanax overdose, he relates that he was. PHYSICAL EXAMINATION: VITAL SIGNS: Normal. CHEST: Clear. CARDIAC: Normal. ABDOMEN: Soft. IMPRESSION: 1. Xanax overdose. 2. Depression. 3. Suicide attempt. 4. COPD. PLAN: 1. Updrafts. 2. Continue to follow his mental status. MMODL / IJN: [id number] /
[2024-03-10 14:00] VITALS: RESP 16
--- NOTE | 2024-03-10 16:37 | P.CN ---
Psychiatric Consult - . Consult date: 03/10/24 Consult:: 03/10/24 16:35 CONSULTATION Reason for consult: Intentional overdose with Xanax. identifying Data: The patient is year 63 old, single, white male, who lives in [place], [place]. Reason for admission: Overdose of pills. History of present illness: The patient was brought to the emergency department via an ambulance following overdose of Xanax. The patient reported that he took overdose of pills because he was unable handle stress of taking care of his mother, who is demented and moving of his girlfriend from [place]. His girlfriend has bipolar disorder, as per patient. here in April. His step- father also recently. The patient noted that his depression started 2 months ago and slowly got worse leading to suicidal attempt. The patient reported symptoms of sadness, crying, loss of interest, social isolation, feelings of worthlessness and hopelessness. The patient noted that he has never been depressed before. He reported taking Xanax prescribed to him for anxiety by his PCP. He was also placed on Paxil. He stopped taking Paxil because it did not work. He denied having depression in the past. He noted that his anxiety started in past 2-3 months ago related to the same stressors. . The patient stated that he has never been hospitalized for psychiatric reasons. He has never sought psychiatric treatment as an out-pt. He has no h/o suicidal or homicidal ideation or behavior in the past. On leading questions admitted to depression, anxiety, hopelessness, worthlessness, He does not have any SI or HI ideations now. The patient denied any symptoms of paranoia, or any other delusional thinking, A/V hallucinations. History of past psychiatric illness: None. No history of suicidal or homicidal ideations or behavior. Past medical history: COPD, HTN, Dyslipidemia Substance abuse history: None now. In the past he used Marijuana, Cocaine, Alcohol. Family history of psychiatric disorder: None. No h/o suicide or homicide. MSE: Alert and attentive Orientation X3. Pleasant and cooperative. Psychomotor activity: Speech: Normal tone, quality, and quantity Mood: Depressed. Affect: Appropriate to mood. SI or HI: None Thought content: Normal Thought process: Normal Perceptual disturbance: Normal Cognition: Intact Judgement and Insight: Intact Major depressive disorder, single episode with suicide attempt. The patient meets criterias for in-patient psychiatric admission. Transfer patient to psychiatric in-patient unit after medical stabilization. Medication recommendations: Zoloft 25 mg po daily, Hydroxyzine 25 mg po bid. Noah Strange MD Psychiatry
--- NOTE | 2024-03-10 22:07 | PN ---
PROGRESS NOTE DATE OF SERVICE: 03/10/2024 CHIEF COMPLAINT: Xanax overdose and depression. HISTORY OF PRESENT ILLNESS: This gentleman is more awake every day. He is answering questions appropriately. PHYSICAL EXAMINATION: CHEST: He has occasional rhonchi and scattered rales on his chest exam. CARDIAC: Normal. ABDOMEN: Soft, nontender. IMPRESSION: 1. Xanax overdose. 2. Major depression. 3. COPD. PLAN: Await further recommendations from Psychiatry. MMODL / IJN: [id number] /
--- NOTE | 2024-03-11 12:26 | MR ---
EXAMINATION TYPE: MR brain wo/w con DATE OF EXAM: 03/11/2024 11:32 AM CLINICAL INDICATION:Male, 63 years old with history of right frontal lesion on ct head; PHH, Right fr ontal lesion on CT head COMPARISON: CT 03/08/2024 TECHNIQUE: Multi planar, multi sequence imaging was performed through the brain including: T1, T2, In version recovery, susceptibility weighted imaging and gradient echo imaging and Diffusion weighted im aging. The patient was then given intravenous contrast and multi planar, T1 fat-saturation images wer e obtained. IV Contrast: 8.5 cc Gadavist FINDINGS: No abnormal signal is seen within the area of concern in the right frontal lobe seen on CT. The lin-white junctions, ventricular system, basal cisterns appear unremarkable. Diffusion-weighte d imaging shows no evidence of restricted diffusion to suggest acute/subacute infarct. Intracranial a rterial flow voids are maintained. Midline structures show no abnormality. Scattered foci of high T2 signal intensity are seen within the periventricular white matter. The susceptibility weighted images do not reveal any evidence for micro-hemorrhage. After administration of gadolinium, no abnormal enh ancement is seen. The bone marrow signal is within normal limits. Paranasal sinuses and mastoid air cells: No significant paranasal sinus disease. Visualized orbits: Orbital contents are intact. IMPRESSION: 1. No finding to correlate with prior CT finding suggests artifact on CT. No evidence of intracranial mass, acute/subacute infarct, or abnormal enhancement. 2. Nonspecific white matter changes, likely related to small vessel ischemic disease.
--- NOTE | 2024-03-11 13:20 | P.PN ---
Subjective Progress Note Date: 03/11/24 I am following-up with patient and he states he is doing well. No headache, focal deficits. He completed MRI Brain today and was negative for any acute process and it seems the abnormality of CT head was more artifact. Objective - Vital Signs Vital signs: Vital Signs Temp 98.8 F 03/11/24 07:46 Pulse 60 03/11/24 08:08 Resp 16 03/11/24 07:46 BP 104/63 03/11/24 07:46 Pulse Ox 97 03/11/24 07:46 FiO2 Intake & Output 03/10/24 03/11/24 03/11/24 18:59 06:59 18:59 Intake Total 118 Balance 118 Intake: Oral 118 Other: Voiding Method External Catheter # Voids 3 2 - Exam General: Sitting in the chair and is not in acute distress. Neuro: Patient is awake alert oriented to self place and time. Of simple commands. No aphasia. No facial weakness Motor: Strength is Lifting all extremities above gravity equally. Some of the workup during this hospital visit consisted of: Chemistry panel is unremarkable Urine Toxicology screen is positive for benzo. Otherwise the rest is on nondetected. Serum alcohol is less than 10 CT of the head is reported as no evidence for acute/subacute CVA. Intra-axial area of hyperdensity brain parenchyma in the right frontal lobe not present on prior imaging. Not felt to represent blood product. Further evaluation with MRI recommended with IV contrast. Reviewed the CT and I did see what the r adiologist pointed out unsure if it is truly hyper intensity due to questionable mass versus bleed versus artifact. MRI Brain w/ and w/o: Is reported as no finding to correlate with prior CT findings suggest artifact on CT. No evidence of intracranial mass, acute/subacute infarct or abnormal enhancement. Nonspecific white matter changes, likely related to small vessel ischemic disease. Patient reviewed the MRI and agree there is no acute or subacute stroke and there is no enhancement. - Labs CBC & Chem 7: 03/08/24 13:10 03/08/24 13:10 Assessment and Plan Assessment: This is a 63-year-old gentleman who presented emergency department because of suicidal attempt in which he overdosed on Xanax and he stated that he took 60 tablets of 1 mg of Xanax. His stressors was dealing with mother and his girlfriend we feels they have bipolar. CT of the head shows hyperintensity over the right frontal which was not seen on the prior. Denies of any headache, focal weakness or any head trauma Suicidal attempt Hyperintensity over the right frontal on CT. But then later had MRI Brain and it turned out artifact. Plan: Psychiatry is on board. Will defer the rest of the medical management to primary and other specialist Discussed with the patient and his nurse. There is no further neurological workup. Will sign off. Please reconsult if needed. Time with Patient: Less than 30
--- NOTE | 2024-03-11 22:25 | DS ---
DISCHARGE SUMMARY CHIEF COMPLAINT: Lethargy and mental status changes. HISTORY OF PRESENT ILLNESS AND PHYSICAL EXAMINATION: Details of this man's history and physical can be found in the initial workup. LABORATORY STUDIES: While he was in the hospital, he had laboratory studies, details of which can be found in the laboratory section of his chart. COURSE IN THE HOSPITAL: After admission, he was placed on bedrest, started intravenous fluids and had bedside monitoring. He became more awake and alert. He was also seen by Psychiatry. He admitted that he had overdosed on his Xanax, trying to kill himself. Psychiatry felt that under the circumstances, he was a risk for himself and he should be transferred to the psych unit, which was done on the . FINAL DIAGNOSES: 1. Major depression. 2. Xanax overdose. 3. Chronic obstructive pulmonary disease. OPERATIONS: None. CONSULTATIONS: Psychiatry, he is improved. MMVANNESSAL / VNINY: [id number] /
[2024-03-12 02:25] VITALS: BP 111/67; PULSE 58; TEMP 98.2
== END 2024-03-12 04:43 ==
LOC: EC 12:41 → 4SSUR 15:56 → INTOOBSV 15:56 → 4SSUR 17:30 → 6NMEDSUR 23:14 → UNDODISOB 03-12 04:44
PROVIDERS: ADMIT Family Medicine; ATTEND Family Medicine
DX: T42.4X2A Poisoning by benzodiazepines, intentional self-harm, initial encounter (principal); F32.9 Major depressive disorder, single episode, unspecified; J44.9 Chronic obstructive pulmonary disease, unspecified; I10 Essential (primary) hypertension; R00.1 Bradycardia, unspecified; F41.9 Anxiety disorder, unspecified; F17.200 Nicotine dependence, unspecified, uncomplicated; Z79.899 Other long term (current) drug therapy
CPT/HCPCS: 96361 ×2; 96374; 99291; 36415; 94640 ×6; 94760; 93005; 80053; 83605; 84484; 85025; 80306; 80143; 87635; 80179; 70450; 70553; G0378 ×4; G0480; J2310; A9585; 80320

== ENCOUNTER 2024-03-11 17:56 | Inpatient (IN) | payer MEDICAID, OTHER ==
[2024-03-11] MEDS ORDERED: MAG HYDROX/AL HYDROX/SIMETH 355 ML BOTTLE PO PRN (18:45)
[2024-03-11] MEDS ORDERED: ACETAMINOPHEN TAB 325 MG TAB PO PRN (18:45)
[2024-03-11] MEDS ORDERED: MAGNESIUM HYDROXIDE 2,400 MG/30 ML CUP PO PRN (18:45)
[2024-03-11] MEDS ORDERED: IBUPROFEN 600 MG TAB PO PRN (18:45)
[2024-03-12] MEDS: hydrALAZINE HCL 25 MG TAB PO SCH (05:10)
[2024-03-12] MEDS ORDERED: NON FORMULARY DRUG (Losartan Potassium [Losartan Potassium] 100 MG Tablet) PO SCH (09:00)
[2024-03-12] MEDS: LOSARTAN 50 MG TAB PO SCH (09:38)
[2024-03-12] MEDS: SERTRALINE 50 MG TAB PO SCH (09:38)
[2024-03-12] MEDS: NICOTINE 14MG/24HR PATCH TRANSDERM SCH (09:42)
--- NOTE | 2024-03-12 13:36 | P.HP ---
Psychiatric H&P - . H&P Date: 03/12/24 History & Physical: Allergies Allergy/AdvReac Type Severity Reaction Status Date / Time No Known Allergies Allergy Verified 03/08/24 17:10 Vital Signs Temp 97.5 F L 03/12/24 09:38 Pulse 83 03/12/24 09:38 Resp 20 03/12/24 09:38 BP 132/75 03/12/24 09:38 Pulse Ox 97 03/12/24 05:07 FiO2 Intake & Output 03/11/24 03/12/24 03/12/24 18:59 06:59 18:59 Weight 81.647 kg 90.747 kg 03/12/24 13:35 Psychiatric Evaluation identifying Data: The patient is year 63 old, single, white male, who lives in [place], [place]. History of present illness: The patient was brought to the emergency department via an ambulance following overdose of Xanax. The patient reported that he took overdose of pills because he was unable handle stress of taking care of his mother, who is demented and moving of his girlfriend from [place]. His girlfriend has bipolar disorder, as per patient. here in April. His step- father also recently. The patient noted that his depression started 2 months ago and slowly got worse leading to suicidal attempt. The patient reported symptoms of sadness, crying, loss of interest, social isolation, feelings of worthlessness and hopelessness. The patient noted that he has never been depressed before. He reported taking Xanax prescribed to him for anxiety by his PCP. He was also placed on Paxil. He stopped taking Paxil because it did not work. He denied having depression in the past. He noted that his anxiety started in past 2-3 months ago related to the same stressors. . The patient stated that he has never been hospitalized for psychiatric reasons. He has never sought psychiatric treatment as an out-pt. He has no h/o suicidal or homicidal ideation or behavior in the past. On leading questions admitted to depression, anxiety, hopelessness, worthlessness, He does not have any SI or HI ideations now. The patient denied any symptoms of paranoia, or any other delusional thinking, A/V hallucinations. History of past psychiatric illness: None. No history of suicidal or homicidal ideations or behavior. Past medical history: COPD, HTN, Dyslipidemia Substance abuse history: None now. In the past he used Marijuana, Cocaine, Alcohol. Family history of psychiatric disorder: None. No h/o suicide or homicide. Social History: The patient was born and raised in [place], [place]. He grew-up alone. He dropped out of 9th grade. 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 He travelled with [employer] and [employer]. He was never . AIMS: Negative OTC None Allergies: None as per patient. MSE: Alert and attentive Orientation X3. Pleasant and cooperative. Psychomotor activity: Speech: Normal tone, quality, and quantity Mood: Depressed. Affect: Appropriate to mood. SI or HI: None Thought content: Normal Thought process: Normal Perceptual disturbance: Normal Cognition: Intact Judgement and Insight: Intact Diagnosis: Adjustment disorder with mixed emotional disturbance. Suicide attempt. Plan and Recommendations: Continue current Medications. Monitor MS and side effects of medications and adjust medications accordingly. Provide supportive psychotherapy and psychoeducation. The patient provided psychoeducation. The patient provided with substance abuse counselling and advised to attend AA/NA Smoke cessation therapy. The patient to attend beal Milieu. Medication Consent with explanation of risk/benefits and side effects: Explained and obtained.
[2024-03-12] MEDS: hydrOXYzine HCL 25 MG TAB PO PRN (21:39)
--- NOTE | 2024-03-12 22:07 | CONS ---
CONSULTATION CHIEF COMPLAINT: Major depression with suicide attempt and overdose. HISTORY OF PRESENT ILLNESS: This gentleman is transferred from medical floor. He has been a stable and a reliable patient and has been treated and followed for COPD and hypertension. He had a long- term girlfriend, who just broke up with him and is planning on leaving the state in 3 weeks. He became very depressed and overdosed on Xanax. REVIEW OF SYSTEMS: At the present time, he is doing well without headache, chest pain, shortness of breath, etc. Past medical history, family history, personal and social histories are all to be found in his prior records. PHYSICAL EXAMINATION: VITAL SIGNS: Normal. HEAD, EARS, EYES, NOSE, MOUTH, AND THROAT: Normal. CHEST: Clear. CARDIAC: Normal. ABDOMEN: Protuberant, soft, and nontender. EXTREMITIES: Normal. NEUROLOGICAL: He is intact. ASSESSMENT: He is admitted with a diagnosis of, 1. Major depression. 2. Xanax overdose. 3. Chronic obstructive pulmonary disease. 4. Hypertension. RECOMMENDATIONS: None. Thank you respectfully, MMRIZWANA / JOYCEN: [id number] /
[2024-03-13] MEDS: SERTRALINE 50 MG TAB PO SCH (07:59)
[2024-03-13 14:42] LABS: Basophils # (A) 0.1 k/uL (0-0.2); Basophils % (A) 1 %; Eosinophils # (A) 0.1 k/uL (0-0.7); Eosinophils % (A) 2 %; HCT 47.1 % (39.0-53.0); HGB 14.8 gm/dL (13.0-17.5); Lymphocytes # (A) 1.7 k/uL (1.0-4.8); Lymphocytes % (A) 18 %; MCH 32.3 pg (25.0-35.0); MCHC 31.4 g/dL (31.0-37.0); MCV 102.8 fL (80.0-100.0); Mean Platelet Volume 9.5; Monocytes # (A) 0.5 k/uL (0-1.0); Monocytes % (A) 6 %; Neutrophils # (A) 6.8 k/uL (1.3-7.7); Neutrophils % (A) 72 %; Platelet Count 180 k/uL (150-450); RBC 4.58 m/uL (4.30-5.90); RDW 11.5 % (11.5-15.5); WBC 9.4 k/uL (3.8-10.6)
[2024-03-13 15:00] LABS: ALT 21 U/L (4-49); AST 20 U/L (17-59); African American GFR (CKD) >90 (>60 ml/min/1.73 sqM); Alkaline Phosphatase 77 U/L (38-126); Anion Gap 7 mmol/L; Blood Urea Nitrogen 18 mg/dL (9-20); Calcium 9.1 mg/dL (8.4-10.2); Carbon Dioxide 28 mmol/L (22-30); Chloride 102 mmol/L (98-107); Glucose 145 mg/dL (74-99); Non-African American GFR(CKD) 87 (>60 ml/min/1.73 sqM); Potassium 4.7 mmol/L (3.5-5.1); Sodium 137 mmol/L (137-145); Total Bilirubin 1.1 mg/dL (0.2-1.3); Total Protein 6.5 g/dL (6.3-8.2)
--- NOTE | 2024-03-13 15:37 | P.PN ---
Progress Note - Text Progress Note Date: 03/13/24 Follow-up Mediation Review Chief Complaint: I feel depressed: Subjective: The patient noted that he is depressed. He feels torn between her mother and the girlfriend. His girlfriend gets upset because he does not spend enough time with her. She wants to leave and go back to [place] in April. He does state that he will adjust it but can not shake it off. His mother has Dementia. He is the only client care specialist. The patient does not have siblings. The patient has been attending the groups. The participation is good. The interaction with staff and peers is good. The patient is compliant with treatment recommendations. Leading questions: The patient admitted to Depression and Anxiety. Denied SI or HI. Denied symptoms consistent with psychosis Sleep and Appetite: Fair. He noted not sleeping well last night. He could not shut his mind off. Change in family/ living/job/financial/daily routine: No change. Change in medical condition: No change. Change in medications: No change. Side effects from Medications: None. Allergies: No change. Objective- MSE: Alert and attentive. Orientation times three. Dressed and Groomed: Appropriately. Pleasant and cooperative. Psychomotor Activity: Normal. Speech: Normal in tone, quality, and quantity. Mood: Depressed and anxious. Affect: Sad and worried. SI or HI: None. Perceptual disturbance: None. Thought Content: No paranoia or other delusional thinking noted. Thought Process: Normal. Cognition: Intact Judgment and Insight: Good AIMS: Normal. Labs: No new labs. Diagnosis: No change. Plan and Recommendations: Continue current Medications. Monitor MS and side effects of medications and adjust medications accordingly. Provide supportive psychotherapy. The patient provided psychoeducation and advised The patient to attend beal activities. CBC with Diff, CMP, Lipid Profile, HbA1c, EKG, ordered Medication Consent with explanation of risk/benefits and side effects: Explained and obtained.
[2024-03-13 19:15] LABS: Chol/HDL Ratio 4.03 Ratio; LDL Cholesterol,Calculated 94.6 mg/dL (0.0-131.0); VLDL Calculation 15.24 mg/dL (5.00-40.00)
[2024-03-13] MEDS: traZODone HCL 50 MG TAB PO SCH (20:28)
[2024-03-14 06:30] VITALS: RESP 16
[2024-03-14] MEDS: SERTRALINE 50 MG TAB PO SCH (09:05)
--- NOTE | 2024-03-14 11:16 | P.PN ---
Progress Note - Text Progress Note Date: 03/14/24 Interval History: Patient was seen bedside this morning and was directable and agreeable to speak with medical writer. he appears to be somewhat internally agitated and says that he had difficulty sleeping (could not fall asleep) last night despite being on trazodone. He endorses having racing thoughts and having difficulty with relaxing due to having high anxiety about "everything" for "most of my life ". He admits that his anxiety prevents him from working on the situations that cause him anxiety. He states that he has not noticed any benefit for his mood or anxiety currently with Zoloft and was encouraged to continue compliance with the medication at this time. He endorses having eaten well and denies concerns with appetite. At this time patient denies any suicidal or homicidal ideations, intent or plan. Patient denies any auditory, visual hallucinations and denies any paranoia or delusions. Patient denies any side effects from the medications and has been compliant with meds. Mental Status Exam: Alert and attentive. Orientation times three. Dressed and Groomed: Appropriately. Pleasant and cooperative. Psychomotor Activity: internally agitated and somewhat restless Speech: Normal in tone, quality, and quantity. Mood: Depressed and anxious. Affect: Sad and worried. SI or HI: None. Perceptual disturbance: None. Thought Content: No paranoia or other delusional thinking noted. Thought Process: Normal. Cognition: Intact Judgment and Insight: fair Assessment Adjustment disorder with mixed emotional disturbance s/p SA Plan: -Patient continues to meet criteria for inpatient psychiatric admission for symptom stabilization and safety. -Medications: Zoloft 75 mg daily for depression & anxiety, trazodone 50 mg qHS for sleep Start melatonin 5 mg qHS for sleep -When necessary Ativan and Haldol for agitation/aggression. -NRT - [nicotine patch] -SW on board for discharge planning. Encouraged the patient to participate in milieu.
[2024-03-14] MEDS: MELATONIN 5 MG TABLET PO SCH (20:43)
--- NOTE | 2024-03-15 14:19 | P.PN ---
Progress Note - Text Progress Note Date: 03/15/24 Interval History: Patient was seen bedside this morning and was directable and agreeable to speak with group underwriter. Patient continues to appear anxious and says that he had difficulty sleeping last night. He refused to schedule trazodone although he was informed yesterday to take both trazodone and melatonin together. He says that he will try this tonight. Did problem focused therapy for patient due to inability to cope with high level of anxiety. Patient minimizes situation leading to suicide attempt and is fixated on discharge. He was encouraged to use this time to reflect on situations that he found overwhelming that culminated in a suicide attempt. Patient was hesitant but overall agreeable with increasing Zoloft. He says that he does not believe in the effect of psychotropic medications. Psychoeducation was provided the patient was rather resistant to being educated and appeared to be internally preoccupied. However, he was not fully open to discussing therapy either. He reports fair appetite and fair energy. However, he endorses feeling bored but is noted to not engage about the milieu and is isolated to his room. Behavioral activation was encouraged. At this time patient denies any suicidal or homicidal ideations, intent or plan. Patient denies any auditory, visual hallucinations and denies any paranoia or delusions. Patient denies any side effects from the medications and has been compliant with meds. Vital Signs Temp 98 F 03/14/24 06:28 Pulse 71 03/15/24 08:20 Resp 16 03/14/24 06:28 BP 119/78 03/15/24 08:20 Pulse Ox 96 03/14/24 06:28 FiO2 Mental Status Exam: Alert and attentive. Orientation times three. Dressed and Groomed: Appropriately. Pleasant and cooperative. Psychomotor Activity: internally agitated and somewhat restless Speech: Normal in tone, quality, and quantity. Mood: "Bored "and anxious. Affect: Anxious SI or HI: None. Perceptual disturbance: None. Thought Content: No paranoia or other delusional thinking noted. Thought Process: Normal. Cognition: Intact Judgment and Insight: poor Assessment Adjustment disorder with mixed emotional disturbance s/p SA Generalized anxiety disorder History of polysubstance use including cannabis, cocaine, alcohol Plan: -Patient continues to meet criteria for inpatient psychiatric admission for symptom stabilization and safety. -Medications: Increase Zoloft to 100 mg daily for depression & anxiety, trazodone 50 mg qHS for sleep Continue melatonin 5 mg qHS for sleep -When necessary Ativan and Haldol for agitation/aggression. -NRT - [nicotine patch] -SW on board for discharge planning. Encouraged the patient to participate in milieu.
[2024-03-15 16:57] LABS: Appearance,Urine Clear (Clear); Bilirubin,Urine Negative (Negative); Blood,Urine Negative (Negative); Color,Urine Yellow; Glucose,Urine (UA) Negative (Negative); Ketones,Urine Negative (Negative); Leukocyte Esterase,Urine Negative (Negative); Nitrite,Urine Negative (Negative); PH, Urine 5.5 (5.0-8.0); Protein,Urine Negative (Negative); Specific Gravity,Urine 1.025 (1.001-1.035)
[2024-03-16] MEDS: SERTRALINE 100 MG TAB PO SCH (08:55)
--- NOTE | 2024-03-16 15:41 | P.PN ---
Progress Note - Text Progress Note Date: 03/16/24 Follow-up Mediation Review Chief Complaint: I am feeling good: Subjective: The patient noted that he is feeling better today. The patient does not feel as stressed as he was feeling before due to his home situation. He thinks he is getting over the separation from his girlfriend. The patient intends to follow-up with [facility] after discharge. No side effects reported. Overall, the is doing much better than before. The patient has been attending the groups. The participation is good. The interaction with staff and peers is good. The patient is compliant with treatment recommendations. Leading questions: The patient admitted to Depression and Anxiety. Denied SI or HI. Denied symptoms consistent with psychosis Sleep and Appetite: Fair. He noted not sleeping well last night. He could not shut his mind off. Change in family/ living/job/financial/daily routine: No change. Change in medical condition: No change. Change in medications: No change. Side effects from Medications: None. Allergies: No change. Objective- MSE: Alert and attentive. Orientation times three. Dressed and Groomed: Appropriately. Pleasant and cooperative. Psychomotor Activity: Normal. Speech: Normal in tone, quality, and quantity. Mood: Depressed and anxious, improved. Affect: Consistent with mood. SI or HI: None. Perceptual disturbance: None. Thought Content: No paranoia or other delusional thinking noted. Thought Process: Normal. Cognition: Intact Judgment and Insight: Good AIMS: Normal. Labs: No new labs. Diagnosis: No change. Plan and Recommendations: Continue current Medications. Monitor MS and side effects of medications and adjust medications accordingly. Provide supportive psychotherapy. The patient provided psychoeducation and advised The patient to attend beal activities. Medication Consent with explanation of risk/benefits and side effects: Explained and obtained.
[2024-03-17 07:17] VITALS: TEMP 97.8
[2024-03-17] MEDS: SERTRALINE 25 MG TAB PO SCH (08:27)
[2024-03-17 08:29] VITALS: BP 126/72; PULSE 71
--- NOTE | 2024-03-17 16:29 | P.DS ---
Providers Date of admission: 03/12/24 04:44 Expected date of discharge: 03/17/24 Attending physician: Noah Strange MD Consults: 03/11/24 18:45 Consult Physician Routine Consulting Provider: Mando King Consult Reason/Comments: H&P Do you want consulting provider notified?: Yes Primary care physician: Mando King - Discharge Diagnosis(es) (1) Adjustment disorder with mixed emotional features Status: Acute Priority: High (2) Suicide attempt Status: Acute Priority: High Hospital Course: Discharge Summary identifying Data: The patient is year 63 old, single, white male, who lives in [place], [place]. History of present illness: The patient was brought to the emergency department via an ambulance following overdose of Xanax. The patient reported that he took overdose of pills because he was unable handle stress of taking care of his mother, who is demented and moving of his girlfriend from [place]. His girlfriend has bipolar disorder, as per patient. here in April. His step- father also recently. The patient noted that his depression started 2 months ago and slowly got worse leading to suicidal attempt. The patient reported symptoms of sadness, crying, loss of interest, social isolation, feelings of worthlessness and hopelessness. The patient noted that he has never been depressed before. He reported taking Xanax prescribed to him for anxiety by his PCP. He was also placed on Paxil. He stopped taking Paxil because it did not work. He denied having depression in the past. He noted that his anxiety started in past 2-3 months ago related to the same stressors. . The patient stated that he has never been hospitalized for psychiatric reasons. He has never sought psychiatric treatment as an out-pt. He has no h/o suicidal or homicidal ideation or behavior in the past. On leading questions admitted to depression, anxiety, hopelessness, worthlessness, He does not have any SI or HI ideations now. The patient denied any symptoms of paranoia, or any other delusional thinking, A/V hallucinations. History of past psychiatric illness: None. No history of suicidal or homicidal ideations or behavior. Past medical history: COPD, HTN, Dyslipidemia Substance abuse history: None now. In the past he used Marijuana, Cocaine, Alcohol.HPI: Hospital Course: After admission, the patient was involved in pharmacotherapy, beal milieu, and individual psychodynamic psychotherapy. The patient was Zoloft. All sedative hypnotics were stopped and discouraged to be on. The patient understood. The dose was titrated to obtain the desire effects. The patient tolerated medicatio ns well without any side effects except mild tremors when dose of Zoloft was raised to 100 mg. The dose was dropped to 75 mg. The tremors subsided. The patient was also involved in bael activities. The patient attended the groups and participated well. The patient interacted with peers and staff well. The patient slowly started showing improvement. The hospital course was uneventful. The patient symptoms of depression, suicidal and homicidal ideations abated. The patient was stable to be discharged to out-patient care. The patient did not have any guns or weapons in possession at home. MSE: MSE: Alert and attentive Orientation X3. Pleasant and cooperative. Psychomotor activity: Speech: Normal tone, quality, and quantity Mood: Depressed. Affect: Appropriate to mood. SI or HI: None Thought content: Normal Thought process: Normal Perceptual disturbance: Normal Cognition: Intact Judgement and Insight: Intact \Diagnosis: Adjustment disorder with mixed emotional disturbance. Suicide attempt. Plan: The patient to be discharged today. The patient has attained good improvement since admission. He is stable to be followed as an outpatient. The patient is not suicidal or Homicidal. He does not pose any harm to self or others. The patient remains at a greater risk of self-harm or harm to others than general population on a chronic basis due to psychiatric illness and substance abuse. The patient will continue taking following medication post discharge. The importance of medication compliance and maintaining regular appointments at psychiatric out-pt and PCP clinic was explained and encouraged. The patient was also advised to seek alcohol counseling and attend AA/NA meetings. The understood and agreed with the recommendations. probation worker to arrange for and conduct family meeting to ensure safety upon discharge and answer any questions. The social human services assistants to arrange for patients follow-up appointments at [facility] for psychiatric care along with follow-up with PCP. The patient provided psychoeducation. Advised to call 911 or go to nearest ED or call this hospital in case of acute worsening of symptomatology, severe side effects or having suicidal, homicidal thoughts and feeling unsafe at home. Patient Condition at Discharge: Stable Plan - Discharge Summary Discharge Rx Participant: Yes New Discharge Prescriptions: New Sertraline [Zoloft] 75 mg PO DAILY 15 Days #15 tab Continue hydrALAZINE HCL [Apresoline] 25 mg PO BID Losartan Potassium 100 mg PO DAILY Atorvastatin [Lipitor] 40 mg PO DAILY Discontinued PARoxetine HCL [Paxil] 20 mg PO DAILY ALPRAZolam [Xanax] 1 mg PO TID PRN PRN Reason: Anxiety Discharge Medication List Atorvastatin [Lipitor] 40 mg PO DAILY 03/08/24 [History] Losartan Potassium 100 mg PO DAILY 03/08/24 [History] hydrALAZINE HCL [Apresoline] 25 mg PO BID 03/08/24 [History] Sertraline [Zoloft] 75 mg PO DAILY 15 Days #15 tab 03/17/24 [Rx] Follow up Appointment(s)/Referral(s): [facility] [Outside] - 03/18/24 1:00 pm (with Teagan) Mando King MD [Primary Care Provider] - 1 Week Patient Instructions/Handouts: Depression (DC) Activity/Diet/Wound Care/Special Instructions: Avoid the use of street drugs and alcohol. Take all medications as prescribed. When you are in need of refills on your medications, please contact your medical provider and/or outpatient psychiatrist/provider to have this done. Please go to your scheduled outpatient appointment for aftercare treatment. If symptoms return or become worse, call the crisis line at and/or go to the nearest emergency room for evaluation. National Suicide Hotline 980 Discharge Disposition: HOME SELF-CARE
[2024-03-18] MEDS ORDERED: SERTRALINE 100 MG TAB PO SCH (09:00)
== END 2024-03-17 14:42 | disposition home or self-care (01) | DRG 755 ==
LOC: 3MHU 03-12 04:37 → UNDOADMIN 03-12 04:37 → 3MHU 03-12 04:44
PROVIDERS: ADMIT Psychiatry & Neurology Psychiatry; ATTEND Psychiatry & Neurology Psychiatry
DX: F43.23 Adjustment disorder with mixed anxiety and depressed mood (principal); T42.4X2D Poisoning by benzodiazepines, intentional self-harm, subsequent encounter; J44.9 Chronic obstructive pulmonary disease, unspecified; I10 Essential (primary) hypertension; F41.1 Generalized anxiety disorder; F32.9 Major depressive disorder, single episode, unspecified; F14.11 Cocaine abuse, in remission; F10.11 Alcohol abuse, in remission; F12.11 Cannabis abuse, in remission; E78.5 Hyperlipidemia, unspecified; Z63.0 Problems in relationship with spouse or partner
CPT/HCPCS: 80053; 80061; 81003; 83036; 84443; 85025; 93005